=== PATIENT | male | born 1950 | race Caucasian/White ===

== ENCOUNTER → 2016-11-10 | Day surgery (SDC) | payer BC, OTHER ==
[2016-11-10] VITALS (10 sets, daily range): BP systolic 101–135; BP diastolic 5–69; PULSE 58–67; TEMP 36.4–36.6; O2SAT 93–98; Ht 167.6 cm; Wt 103.6 kg
[~2016-11-10] VITALS: Ht 167.6 cm; Wt 103.6 kg
[~2016-11-10] MED LIST: ACETAMINOPHEN 500 MG TAB PO PRN; ASPI81TA28 PO; CARV6.252 PO; CRS/10 PO; DULO60CA44 PO; FOLI1TAB7 PO; METH2.5T PO; MULTTAB58 PO; NRN300 PO; NRN600 PO; NTRGSL/4 UT; NVLGI7030 SC; OXYC-106 PO; ROPI1TAB PO; TORS20TA2 PO; VITAMIN E PO
--- NOTE | 2016-11-10 10:27 | DIAGNOSTIC IMAGING REPORT ---
FLUOROSCOPICALLY GUIDED LUMBAR MYELOGRAM CLINICAL HISTORY: Low back pain. FLUOROSCOPY TIME: 0.5 minutes. A single image submitted. PROCEDURE: The procedure, risks and benefits were discussed with the patient including the risk of spinal headache, bleeding and infection. The patient agreed to the procedure and informed written consent was obtained. The procedure was performed by Dr. Springer following a timeout. The L4 space was targeted at the laminectomy defect. Skin overlying the space was prepped and draped in the usual sterile fashion and local anesthesia was achieved with 1% lidocaine. Under intermittent fluoroscopic guidance, a 20-gauge x 3 1/2 in. Sprotte needle was inserted into the thecal sac. A total of 10 cc of Isovue-M 200 was injected into the thecal sac under fluoroscopic guidance. The patient tolerated the procedure well. There were no immediate complications. IMPRESSION: Successful fluoroscopic guided lumbar myelogram. Electronically signed by: Justice Springer M.D. 11/10/2016 10:26 AM Dictated Date/Time: 11/10/2016 10:13 AM
--- NOTE | 2016-11-10 10:29 | Discharge Instructions ---
Discharge Instructions Procedure Procedure Date: Nov 10, 2016. Reason for visit: Lumbar Stenosis. Discharge Discharge Date: Nov 10, 2016. Discharge Diagnosis: same Instructions Activity Recommendations: No limitations Return to School/Work: no limitations Recommended Home Diet: Resume Previous Diet Provider Instructions: ACTIVITY RECOMMENDATIONS: * Rest today. * Resume regular activity in one day. MEDICATIONS: * May take Tylenol or Ibuprofen as needed for pain. DIET: * Resume previous diet. SPECIAL CARE INSTRUCTIONS: Call your doctor if: * Temperature above 101 degrees F. * Pain not relieved by pain medicine ordered. * Increased drainage or redness from incision. * Notify your doctor with any questions or concerns. Call your doctor or go to the nearest Emergency Department if you experience: * Increased chest pain or shortness of breath. FOLLOW UP VISIT: Follow-up with Referring Physician as scheduled. Allergies Coded Allergies: Gluten (Verified Allergy, Unknown, GI SYMPTOMS, 11/10/16) Pneumococcal Vaccine (Verified Allergy, Unknown, ANAPHYLAXIS, 11/10/16) unknonw reaction Wheat (Verified Allergy, Unknown, GI SYMPTOMS, 11/10/16) [place] Recommendations: Call your doctor if: * Temperature above 101 degrees * Pain not relieved by pain medicine ordered * There is increased drainage or redness from any incision * You have any unanswered questions or concerns. Your Doctors Instructions noted above were prepared by provider Justice Springer. Patient Signature Section: Patient Instructions Signature Page Abhilash Stewart Patient (or Guardian) Signature/Date: I have read and understand the instructions given to me by my caregivers. Caregiver/RN/Doctor Signature/Date: The above-named patient and/or guardian has received patient instructions on this date. + Original Patient Signature Page (only) stays with chart. Please make copy for patient.
--- NOTE | 2016-11-10 10:42 | DIAGNOSTIC IMAGING REPORT ---
LUMBAR SPINE CT MYELOGRAM HISTORY: Low back pain. TECHNIQUE: Multiaxial CT images of the lumbar spine were performed following the intrathecal injection of contrast. Coronal and sagittal reformations are also obtained. COMPARISON: None. FINDINGS: For the purpose of the report the L5-S1 disc space will be located on axial image . Posterior decompression and fusion from L2 through S2 with pedicle screws and rods. There are associated disc spacers at the majority of these levels. The hardware appears intact. No acute fractures. 3 mm of retrolisthesis of L5 on S1. Paraspinal soft tissues are intact. There is a 5 mm stone within the left kidney. Mild disc space narrowing with endplate sclerosis at L1-L2. L1-L2: Broad-based posterior disc bulge with ligamentum and facet hypertrophy resulting in moderate central canal and mild bilateral neural foraminal narrowing. The central canal measures approximate 6 mm in AP diameter. L2-L3: No significant central canal narrowing due to the posterior decompression. Mild bilateral neural foraminal narrowing. L3-L4: No central canal narrowing due to the posterior decompression. Mild bilateral neural foraminal narrowing. L4-L5: No central canal narrowing due to the posterior decompression. Mild bilateral neural foraminal narrowing. L5-S1: No central canal narrowing due to the posterior decompression. Moderate bilateral neural foraminal narrowing. IMPRESSION: 1. Posterior decompression and fusion from L2 through S2 with pedicle screws and rods. The hardware appears intact. 2. No significant central canal narrowing from L2 through S2 due to the posterior decompression. Mild to moderate bilateral neural foraminal narrowing as described above most pronounced at the L5-S1 level. 3. Moderate central canal narrowing at L1-L2 due to a broad-based posterior disc bulge and ligamentum and facet hypertrophy. 4. No fractures within the lumbar spine. 5. Left-sided nephrolithiasis. Electronically signed by: Justice Springer M.D. 11/10/2016 10:40 AM Dictated Date/Time: 11/10/2016 10:29 AM
== END | disposition home or self-care (01) ==
LOC: C.ACU 08:29
PROVIDERS: ATTEND Orthopaedic Surgery Orthopaedic Surgery of the Spine
DX: M48.06 Spinal stenosis, lumbar region (principal)